=== PATIENT | female | born 1995 | race Hispanic/Latino ===

== ENCOUNTER 2019-09-25 04:22 | Inpatient (IN) | payer OTHER ==
[2019-09-25] VITALS (7 sets, daily range): BP systolic 119–143; BP diastolic 59–90
[~2019-09-25] VITALS: Ht 165.1 cm; Wt 85.9 kg
[2019-09-25] MEDS ORDERED: PRENTAB9 PO (05:26)
[2019-09-25] MEDS ORDERED: LR 1,000 ML IV SCH (05:33)
[2019-09-25] MEDS ORDERED: LACTATED RINGER'S 1000 ML IV STA (05:33)
[2019-09-25] MEDS ORDERED: PROMETHAZINE INJ 25 MG/ML VIAL (J2550) IV ONE (05:45)
[2019-09-25] MEDS ORDERED: BUTORPHANOL 2 MG/ML INJ (J0595) IV PRN (05:45)
[2019-09-25] MEDS ORDERED: CALCIUM CARBONATE 500 MG CHEW U/D PO PRN (05:45)
[2019-09-25] MEDS ORDERED: SIMETHICONE 80 MG CHEW TAB PO PRN (05:45)
[2019-09-25] MEDS ORDERED: ACETAMINOPHEN 500 MG TAB PO PRN (05:45)
--- NOTE | 2019-09-25 06:06 | HPEPDOC ---
Obstetrical History & Physical General Date of Admission Sep 25, 2019 at 05:12 History of Present Illness 24-year-old G1, P0 at 39.5 weeks by redating 8 week ultrasound. She presents wit h complaints of pain in her lower abdomen this morning. No loss of fluid or vaginal bleeding or abnormal discharge. No headaches or visual disturbances. Good movement. 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 Past Medical History Medical History None Surgical History: Denies/None Family History Significant Family History: No pertinent family hx Social History Marital Status: Family situation: Spouse/partner home * Smoker: non-smoker Alcohol: Denies Drugs: denies Abuse Violence Screening Have you been hit/kicked/slapp: No Have you been sexually assault: No Imunizations Tdap status: current Allergies Coded Allergies: No Known Allergies (Unverified , 09/25/19) Medications Scheduled No.137/Iron/Folic Acd ( Vitamin Tablet) 1 Each Tablet, 1 TAB PO DAILY Physical Examination Physical Examination GENERAL: Alert and oriented times three. BREAST: . ABDOMEN: Gravid and non-tender to touch. FETUS: Is vertex (VTX) by sterile vaginal examination (SVE), EFW 3700 g. HEART RATE: Regular rate and rhythm. LUNGS: Clear to auscultation (CTA). EXTREMITIES: No edema. Pertinent Laboratoy Data Blood Type: O+ RBC Antibody Screen: Negative HIV: Negative Hepatitis B: Negative Rapid Plasma Reagin: Nonreactive Rubella: Immune Varicella: Nonreactive Chlamydia/Gonorrhea: Negative Group B Streptococcus: Negative Quad Screen Test: Negative Cystic Fibrosis: Negative Glucose Tolerance Test: 127 Anatomy Ultrasound Ultrasound Date: May 10, 2019 Placenta Location: Posterior Normal Anatomy: Yes Placenta Previa: No Estimated Weight (grams): 351 Steroid Therapy Steroid Therapy: No Vaginal Examination Dilation: 3 cm Effacement: 90% Station: 0 Cervical Consistency: Soft Cervical Position: Middle Presentation: Cephalic presentation Assessment Heart Rate (FHR): 140 Variability: Moderate Accelerations: Positive Decelerations: None Tocometer Contractions: Yes Frequency: regular, every 1-3 min. Strength: palpated as moderate Multi-drug resistant Organism: No history of MDRO Assessment/Plan Assessment 24-year-old G1, P0 at 39.5 weeks by redating 8 week ultrasound. Admit for labor and expect delivery by . Pain management per patient preference, which was discussed with her. I discussed risks of with patient of failure with section, distress, bleeding, infection, , vaginal or perineal or neighboring organ tear. Currently, fetus is reassuring. GBS is negative, no need for antibiotics. 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 Diet: Regular. Group B Streptococcus (GBS) negative. Labs and intravenous (IV) per unit protocol. Counseled on Pitocin and induction of labor (IOL). Lactated Ringers (LR): Bolus 500 mL, then at 125 mL/hr. Anticipate normal spontaneous delivery (). Pain medication as per patient desire. Annika Mac MD Sep 25, 2019 06:06
[2019-09-25 06:21] LABS: HEMATOCRIT 36.4 % (36.0-47.0); HEMOGLOBIN 12.4 g/dl (12.0-15.5); MEAN CORPUSCULAR HEMOGLOBIN 28.4 pg (27.0-33.0); MEAN CORPUSCULAR HGB CONC 34.1 g/dl (32.0-36.5); MEAN CORPUSCULAR VOLUME 83.3 fl (80.0-96.0); PLATELET COUNT, AUTOMATED 216 10^3/uL (150-450); RED BLOOD COUNT 4.37 10^6/uL (4.00-5.40); WHITE BLOOD COUNT 10.2 10^3/uL (4.0-10.0)
--- NOTE | 2019-09-25 09:28 | IPNPDOC ---
Text Note Date of Service The patient was seen on 09/25/19. NOTE Cervix check I assumed care of Valeria at 0830. In brief, she is a 24yo with SIUP at 39wk who presented this morning with regular ctx, her SCE was /[address] Mac at that time and she was admitted for active labor. Patient notes that since arrival approx 4 hours ago, her ctx are less impressive- not as strong or regular. Vitals wnl Cat I FHRT with +accels, -decels, mod ange [place]: Irregular ctx SCE 2-/-1 Discussed with patient starting pitocin to get her from latent labor into active labor but she expressly declines "any medication". Discussed that this was my recommendation and she notes she would prefer to go home. Compromised with patient, and proposed that we re-check her in 2 hours. If no further progression into labor, possibly will discharge patient if she continues to decline pitocin. Will closely observe Safe to proceed MD [place]IA Fonseca,Lexi, I+O VSLexi, I+O Laboratory Tests 09/25/19 06:01 Vital Signs Date Time Temp Pulse Resp B/P (MAP) Pulse Ox O2 Delivery O2 Flow Rate FiO2 09/25/19 07:16 98.7 72 20 136/76 (96) 99 Room Air Corina Robison MD Sep 25, 2019 09:27
--- NOTE | 2019-09-25 11:26 | IPNPDOC ---
Text Note Date of Service The patient was seen on 09/25/19. NOTE SCE Re-check Pt comfortable, took a nap. States ctx are not as strong or regular. Vitals wnl, afebrile Cat I FHRT with +accels, -decels, mod ange [place]: ctx >10min apart SCE unchanged 2-/-1, cephalic Discussed with patient that she has not made any cervical change advisor the last 2 hours (or since admission at 0500). My recommendation would be to start pitocin to assist her going into labor, but patient declines and requests discharge. She would like to come back when she is in active labor. We discussed return precautions at length Safe for discharge home Keep next OB appt on Sep if no labor prior Dr. Corina Robison MD VS,Lexi, I+O VS, Lexi, I+O Laboratory Tests 09/25/19 06:01 Vital Signs Date Time Temp Pulse Resp B/P (MAP) Pulse Ox O2 Delivery O2 Flow Rate FiO2 09/25/19 10:14 71 134/65 (88) 09/25/19 10:13 97.9 20 09/25/19 07:16 99 Room Air Corina Robison MD Sep 25, 2019 11:26
--- NOTE | 2019-09-25 11:33 | DS.PDOC ---
Discharge Summary General Date of Admission Sep 25, 2019 at 05:12 Date of Discharge Sep 25, 2019 Attending Physician: Corina Robison MD Discharge Summary PROCEDURES PERFORMED DURING STAY: none ADMITTING DIAGNOSES: 1. Active labor at term DISCHARGE DIAGNOSES: 1. Latent labor at term that did NOT progress into active labor COMPLICATIONS/CHIEF COMPLAINT: Labor Check. HISTORY OF PRESENT ILLNESS/HOSPITAL COURSE: Valeria is a 24yo with SIUP at 39wk who presented with regular painful ctx. She was admitted with presumed active labor, but had cervix checked twice more and experienced no cervical change (2-3/-1) over >6 hours. She was offered IV pitocin to assist her labor progress, but she adamantly refused and requested discharge home. While admitted she had Cat I FHRT and normal vitals, benign exam. Her contractions spaced to >10 min apart. DISCHARGE MEDICATIONS: Please see below. ALLERGIES: Please see below. PHYSICAL EXAMINATION ON DISCHARGE: VITAL SIGNS: Please see below. GENERAL: WDWN, resting comfortably in bed Abdomen: soft, gravid, NTTP Extremities: no edema of BLE LABORATORY DATA: Please see below. ACTIVITY: As tolerated DIET: regular DISCHARGE PLAN/INSTRUCTIONS: We discussed return precautions at length: active labor with regular/painful ctx 3-5min apart for >1 hour, rupture of membranes, decreased movement, fevers/chills, heavy vaginal bleeding, or anything else that concerns her Safe for discharge home Keep next OB appt on Sep if no labor prior DISCHARGE CONDITION: Stable TIME SPENT ON DISCHARGE: Greater than [address] Corina Robison MD Vital Signs/I&Os Vital Signs Date Time Temp Pulse Resp B/P (MAP) Pulse Ox O2 Delivery O2 Flow Rate FiO2 09/25/19 10:14 71 134/65 (88) 09/25/19 10:13 97.9 20 09/25/19 07:16 99 Room Air Laboratory Data Labs 24H Laboratory Tests 2 09/25/19 06:01: Nucleated Red Blood Cells % (auto) 0.0, Hepatitis B Surface Antigen (Rapid) NEGATIVEL CBC/BMP Laboratory Tests 09/25/19 06:01 Discharge Medications Scheduled No.137/Iron/Folic Acd ( Vitamin Tablet) 1 Each Tablet, 1 TAB PO DAILY, (Reported) Allergies Coded Allergies: No Known Allergies (Unverified , 09/25/19) Corina Robison MD Sep 25, 2019 11:33
== END 2019-09-25 11:54 | disposition home or self-care (01) | DRG 833 ==
LOC: M LDO 04:22 → M LDI 05:12
PROVIDERS: ADMIT Obstetrics & Gynecology; ATTEND Obstetrics & Gynecology
DX: O47.1 False labor at or after 37 completed weeks of gestation (principal); Z3A.39 39 weeks gestation of pregnancy

== ENCOUNTER 2019-09-26 17:03 | Inpatient (IN) | payer OTHER ==
[2019-09-26] VITALS (8 sets, daily range): BP systolic 114–140; BP diastolic 55–81
[~2019-09-26] VITALS: Ht 165.1 cm; Wt 83.3 kg
[~2019-09-26 17:03] MED LIST: PRENTAB9 PO
[2019-09-26 18:01] LABS: HEMOGLOBIN 12.5 g/dl (12.0-15.5); MEAN CORPUSCULAR HEMOGLOBIN 27.8 pg (27.0-33.0); MEAN CORPUSCULAR HGB CONC 33.8 g/dl (32.0-36.5); MEAN CORPUSCULAR VOLUME 82.2 fl (80.0-96.0); PLATELET COUNT, AUTOMATED 217 10^3/uL (150-450); WHITE BLOOD COUNT 10.9 10^3/uL (4.0-10.0)
[2019-09-26] MEDS ORDERED: LACTATED RINGER'S 1000 ML IV STA (19:10)
--- NOTE | 2019-09-26 19:31 | HPEPDOC ---
Obstetrical History & Physical General Date of Admission Sep 26, 2019 at 17:39 History of Present Illness Valeria is a 24yo with SIUP at 39w6d by 8wk u/s presenting with regular, painful ctx. No LOF. Good movement. No VB. She was admitted yesterday morning for labor, but made no change and refused augmentation, so she was discharged home at 2cm/80%. Ctx became stronger this evening and she re-presented. 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 ABDOMEN: Gravid and non-tender to touch. FETUS: Is vertex (VTX) by sterile vaginal examination (SVE) per RN EXTREMITIES: trace edema BLE Laboratory Data 24H LABS Laboratory Tests 2 09/26/19 17:43: Serology Scanned Report Hepatitis B Testing 09/26/19 17:51: Nucleated Red Blood Cells % (auto) 0.0 CBC/BMP Laboratory Tests 09/26/19 17:51 Pertinent Laboratoy Data Blood Type: O+ RBC Antibody Screen: Negative HIV: Negative Hepatitis B: Negative Hepatitis C: Unknown Rapid Plasma Reagin: Nonreactive Rubella: Immune Varicella: Nonreactive Chlamydia/Gonorrhea: Negative Group B Streptococcus: Negative Quad Screen Test: Negative Cystic Fibrosis: Negative Glucose Tolerance Test: 127 Anatomy Ultrasound Ultrasound Date: May 10, 2019 Placenta Location: Posterior Normal Anatomy: Yes Placenta Previa: No Steroid Therapy Steroid Therapy: No Vaginal Examination Dilation: 6 cm Effacement: 100% Station: -1, 0 Cervical Consistency: Soft Cervical Position: Anterior Presentation: Cephalic presentation Assessment Heart Rate (FHR): 150 Variability: Moderate Accelerations: Positive Decelerations: None Tocometer Contractions: Yes Frequency: regular, every 2-5 min. Duration: greater than 60 seconds Strength: palpated as strong Assessment/Plan Assessment Valeria is a 24yo with SIUP at 39w6d by 8wk u/s in active labor w/SCE 6/100/- 1 per RN in the setting of regular ctx q3-4min. Cat I FHRT. GBS negative. Vitals wnl. PMhx and course only significant for starting BMI 27 Plan Admit and orient. 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 Diet: clear liquids Group B Streptococcus (GBS) negative Labs and intravenous (IV) per unit protocol. Lactated Ringers (LR): Bolus 500 mL, then saline lock Anticipate normal spontaneous delivery () Candidate for epidural if desired Safe to proceed MD Ricki Fonseca Katrina D MD Sep 26, 2019 19:31
--- NOTE | 2019-09-26 19:43 | IPNPDOC ---
Text Note Date of Service The patient was seen on 09/26/19. NOTE Intrapartum Note Pt doing well breathing through ctx, does not desire any pain medication. Discussed AROM and she is amenable. Vitals wnl, afebrile Cat I FHRT with bl 150, +accels, -decels, mod ange SCE: 6/100/-1, AROM performed with clear fluid noted, modest amount Will continue to closely observe Plan to recheck in 2hr or earlier as indicated Safe to proceed Dr. Corina Robison MD VS,Lexi, I+O VS, Lexi, I+O Laboratory Tests 09/26/19 17:51 Vital Signs Date Time Temp Pulse Resp B/P (MAP) Pulse Ox O2 Delivery O2 Flow Rate FiO2 09/26/19 19:11 99.7 75 20 114/81 (92) Corina Robison MD Sep 26, 2019 19:43
[2019-09-26] MEDS ORDERED: OXYTOCIN 30 UNITS IN 0.9% NaCl 500ML IV BAG (J2590) As Ordered ONE (22:12)
--- NOTE | 2019-09-26 22:54 | IPNPDOC ---
Text Note Date of Service The patient was seen on 09/26/19. NOTE Intrapartum Note Patient breathing through contractions, has not yet wanted any pain meds. Vitals wnl, afebrile Cat I-II FHRT with bl 140's, +accels, -decels, min-mod ange SCE 6/100/-1, unchanged from prior Discussed that epidural may help patient relax and assist cervical change, patient is considering. Order placed in the event she desires epidural. Plan to recheck in 2hr or earlier as indicated Will continue to closely observe Safe to proceed Dr. Corina Robison MD VS,Lexi, I+O VS, Lexi, I+O Laboratory Tests 09/26/19 17:51 Vital Signs Date Time Temp Pulse Resp B/P (MAP) Pulse Ox O2 Delivery O2 Flow Rate FiO2 09/26/19 19:11 99.7 75 20 114/81 (92) Corina Robison MD Sep 26, 2019 22:54
[2019-09-26] MEDS ORDERED: FENTANYL 2MCG/ML ROPIVACAINE 0.2% IN 0.9% NACL 100ML IVBAG As Ordered ONE ×2 (23:04→23:05)
[2019-09-26] MEDS ORDERED: ONDANSETRON 4MG/2ML VIAL (J2405) IV PRN (23:45)
[2019-09-26] MEDS ORDERED: diphenhydrAMINE INJ 50MG/ML VIAL (J1200) IV PRN (23:45)
[2019-09-26] MEDS ORDERED: NALOXONE INJ 0.4 MG/1 ML VIAL (J2310) IV PRN (23:45)
[2019-09-26] MEDS ORDERED: ePHEDrine SULFATE 25 MG/5 ML(5MG/ML) SYRINGE IV PRN (23:45)
[2019-09-26] MEDS ORDERED: EPIDURAL COMMENT XX SCH (23:45)
[2019-09-26] MEDS ORDERED: FENTANYL/ROPIVACAINE/NACL BAG 100 ML EPIDURAL SCH (23:45)
[2019-09-26] MEDS ORDERED: REFRIGERATOR IV KEYS XX PRN (23:45)
[2019-09-26] MEDS ORDERED: EPIDURAL/PCA KEYS XX PRN (23:45)
[2019-09-26] MEDS ORDERED: LACTATED RINGER'S 1000 ML IV PRN (23:45)
[2019-09-27] VITALS (29 sets, daily range): BP systolic 96–135; BP diastolic 52–91
--- NOTE | 2019-09-27 02:02 | IPNPDOC ---
Text Note Date of Service The patient was seen on 09/27/19. NOTE Intrapartum Note Pt comfortable with epidural, took a nap. Vitals wnl, afebrile Cat I FHRT bl 130, +accels, -decels, mod ange [place]: ctx q3min SCE /-1, head well applied to cervix Plan to recheck in 2hr or earlier as indicated Will continue to closely monitor Safe to proceed Dr. Corina Robison MD VS,Lexi, I+O VS, Lexi I+O Laboratory Tests 09/26/19 17:51 Vital Signs Date Time Temp Pulse Resp B/P (MAP) Pulse Ox O2 Delivery O2 Flow Rate FiO2 09/26/19 23:47 99.7 90 18 125/55 (78) I&O- Last 24 Hours up to 6 AM 09/27/19 06:00 Output Total 500 ml Balance -500 ml Corina Robison MD Sep 27, 2019 02:02
[2019-09-27] MEDS ORDERED: OXYTOCIN DRIP 30 UNITS in IV 1 EA IV SCH ×2 (08:45→10:12)
[2019-09-27] MEDS ORDERED: DIBUCAINE 1% OINTMENT 30GM TOP PRN (10:15)
[2019-09-27] MEDS ORDERED: METHYLERGONOVINE MALEATE 0.2 MG TAB PO PRN (10:15)
[2019-09-27] MEDS ORDERED: RHOGAM 300 MCG (1500 IU) INJ (J2790) IM SCH (10:15)
[2019-09-27] MEDS ORDERED: ONDANSETRON 4MG/2ML VIAL (J2405) IV PRN (10:15)
[2019-09-27] MEDS ORDERED: MEASLES,MUMPS,RUBELLA VACCINE INJ (MMR-II) (90707) SC SCH (10:15)
--- NOTE | 2019-09-27 11:10 | DNPDOC ---
[facility] Delivery Note Delivery Note DATE OF DELIVERY: 09/27/2019 PREDELIVERY DIAGNOSIS: Term , 40-0/7 weeks' gestation and labor. POST DELIVERY DIAGNOSIS: Delivered. PROCEDURE: Spontaneous vaginal delivery/ section. BREAD PAN GREASER: Dr. Annika Mac ANESTHESIA: Epidural. ESTIMATED BLOOD LOSS: 600 mL. FINDINGS: 7 pound 12 ounce 3510gm boy infant, Score 9/9, nuchal cord times 1. DELIVERY SUMMARY: Patient is a 24-year-old 1 now para 1 who was admitted to labor and delivery for active labor for 12hours. Patient AROM clear around 19309/26/2019. Baby boy head was delivered without difficulty over intact perineum in CRISTAL position at 0945. The nose and mouth were bulb suctioned. x1 nuchal cord was noted and reduced. The shoulders were then delivered without difficulty. Cord was then clamped x2 and cut. Infant was handed on mother's belly. Pitocin bolus was started. Perineum was inspected and found to have a 2nd degree laceration and a small periurethral laceration. This was repaired with 2-0 chromic. The placenta was then delivered at 1002 spontaneously intact. Cord had a 3 vessel cord. EBL was 600mL. The vagina and perineum were reinspected and no further lacerations were found and hemostasis was good. Fundus was firm. Patient tolerated delivery well. Annika Mac MD Sep 27, 2019 11:10
[2019-09-27] MEDS: SLF 3 ML SYR IV SCH ×2 (14:00→21:33)
[2019-09-27] MEDS ORDERED: SLF 3 ML SYR IV PRN (14:00)
[2019-09-27] MEDS: IBUPROFEN 800 MG TAB PO PRN (17:01)
[2019-09-27] MEDS: DOCUSATE SODIUM 100 MG CAP PO SCH (21:33)
[2019-09-27] MEDS: ACETAMINOPHEN 500 MG TAB PO PRN (22:15)
[2019-09-28] MEDS: IBUPROFEN 800 MG TAB PO PRN (03:40)
[2019-09-28] MEDS: SLF 3 ML SYR IV SCH ×2 (05:09→14:00)
[2019-09-28 06:00] VITALS: BP 117/73
[2019-09-28 06:56] LABS: HEMATOCRIT 23.9 % (36.0-47.0); MEAN CORPUSCULAR HEMOGLOBIN 28.6 pg (27.0-33.0); MEAN CORPUSCULAR HGB CONC 33.5 g/dl (32.0-36.5); MEAN CORPUSCULAR VOLUME 85.4 fl (80.0-96.0); PLATELET COUNT, AUTOMATED 151 10^3/uL (150-450); WHITE BLOOD COUNT 10.6 10^3/uL (4.0-10.0)
--- NOTE | 2019-09-28 07:58 | IPNPDOC ---
Progress Note Date of Service: Sep 28, 2019 Day#: 1 Progress Note SUBJECT: She is a 24yo with SIUP at 39w6d by 8wk u/s status post uncomplicated spontaneous vaginal delivery with post 2nd degree laceration and repair. Doing well day # 1. She has been ambulating, voiding spontaneously without issue and tolerating regular diet. Breast feeding without issue. Reports lochia is like a normal period. Patient is ambulating well. Reports some cramping with . Denies any pain. Voiding and stooling without difficulty. OBJECTIVE: VITAL SIGNS: Within normal limits, afebrile. Alert and oriented times three. Breast without erythema and nontender. Breath sounds clear to auscultation. Heart rate: Regular rate and rhythm, no murmurs, rubs or gallops. Abdomen: Fundus firm at U-1. Soft, NTTP. Minimal lochia. Lower extremeties with mild edema and nontender ASSESSMENT: She is a 24-year-old 1 now Para 1 status post uncomplicated spontaneous vaginal delivery after presenting in active labor doing well on day 1. Vitals within normal limits, afebrile, hemodynamically stable with no evidence of infection. PLAN: 1. Discharge to home tomorrow. 2. Tylenol and Motrin for pain. 3. Encourage breast feeding and ambulation. 4. Unsure about contraception for now. 5. Routine PP visit in 6 weeks in clinic. VS, I&O, 24H, Trange Vital Signs/I&O Vital Signs Date Time Temp Pulse Resp B/P (MAP) Pulse Ox O2 Delivery O2 Flow Rate FiO2 09/28/19 06:00 98.9 99 16 117/73 (88) I&O- Last 24 Hours up to 6 AM 09/28/19 06:00 Intake Total 197 ml Output Total 1550 ml Balance -1353 ml Laboratory Data 24H LABS Laboratory Tests 2 09/28/19 06:36: Nucleated Red Blood Cells % (auto) 0.0 CBC/BMP Laboratory Tests 09/28/19 06:36 Annika Mac MD Sep 28, 2019 07:58
[2019-09-28] MEDS: DOCUSATE SODIUM 100 MG CAP PO SCH ×2 (09:57→20:00)
[2019-09-28] MEDS: PRENATAL VITAMINS CHEWABLE TABLET PO SCH (09:57)
[2019-09-28] MEDS: ACETAMINOPHEN 500 MG TAB PO PRN ×2 (09:58→20:00)
[2019-09-28] MEDS: IBUPROFEN 600 MG TAB PO PRN (16:09)
[2019-09-28 18:06] VITALS: BP 120/81
[2019-09-29] MEDS: IBUPROFEN 600 MG TAB PO PRN ×2 (01:34→09:14)
[2019-09-29 06:00] VITALS: BP 134/63
--- NOTE | 2019-09-29 07:30 | IPNPDOC ---
Progress Note Date of Service: Sep 29, 2019 Day#: 2 Progress Note SUBJECT: Patient is a 24 yo ppd #2, without concerns today. She has been ambulating, voiding spontaneously without issue and tolerating regular diet. Breast feeding without issue. undecided on contraceptive options at this time. OBJECTIVE: VITAL SIGNS: Within normal limits, afebrile. Alert and oriented times three. Abdomen: Fundus firm at U-2. Soft, NTTP. LE: no edema/erythema/tenderness A/P ppd #2, doing well. contraceptive counseling. patient will decide at her visit. recommends not getting until 1 year . discharge today. DO Mónica VS, I&O, 24H, Fishbone Vital Signs/I&O Vital Signs Date Time Temp Pulse Resp B/P (MAP) Pulse Ox O2 Delivery O2 Flow Rate FiO2 09/29/19 06:00 98.8 78 18 134/63 (86) JOSR GARLAND DO Sep 29, 2019 07:30
--- NOTE | 2019-09-29 07:32 | OBDS ---
[facility] Obstetrical Discharge Sum. Obstetrical Discharge Summary Access Analyst/Provider: Annika Mac MD Date: Sep 28, 2019 : 1 Term: 1 Pre-term: 0 Abortions: 0 Livin VDRL: Non-Reactive Rh: Positive Rubella: Immune Sex: Male Infant Weight: grams (3510) Anesthesia: Regional Anesthesia A/P, Post Course List any complications Admission diagnosis: labor at 39wks gestation Discharge diagnosis: () Condition at Discharge: stable Discharge Instructions: Home Activity: as tolerated Diet: regular Medications: filled a ft. drum Follow-up: 6wks Discharge summary: Patient admitted in active labor and progressed to have a spontaneous vaginal delivery. She had second degree laceration, repaired. course uncomplicated and patient meets discharge criteria on day #2. JOSR GARLAND DO Sep 28, 2019 23:56
[2019-09-29] MEDS: PRENATAL VITAMINS CHEWABLE TABLET PO SCH (08:07)
[2019-09-29] MEDS: DOCUSATE SODIUM 100 MG CAP PO SCH (08:07)
[2019-09-29] MEDS ORDERED: ACET-683 PO (14:09)
[2019-09-29] MEDS ORDERED: IBUP80TA PO (14:09)
[2019-09-29] MEDS: ACETAMINOPHEN 500 MG TAB PO PRN (14:40)
== END 2019-09-29 14:45 | disposition home or self-care (01) | DRG 807 ==
LOC: M LDO 17:03 → M LDI 17:39 → M OBS 09-27 12:04
PROVIDERS: ADMIT Obstetrics & Gynecology; ATTEND Obstetrics & Gynecology
PROC: 10907ZC Drainage of Amniotic Fluid, Therapeutic from Products of Conception, Via Natural or Artificial Opening (ICD-10-PCS; 2019-09-26)
PROC: 10E0XZZ Delivery of Products of Conception, External Approach (ICD-10-PCS; principal; 2019-09-27)
PROC: 0KQM0ZZ Repair Perineum Muscle, Open Approach (ICD-10-PCS; 2019-09-27)
DX: O69.81X0 Labor and delivery complicated by cord around neck, without compression, not applicable or unspecified (principal); Z37.0 Single live birth; O70.1 Second degree perineal laceration during delivery; Z3A.39 39 weeks gestation of pregnancy